=== PATIENT | male | born 2000 | race Two or more races ===

== ENCOUNTER 2025-01-06 01:44 | Emergency (ER) | payer OTHER ==
[~2025-01-06] VITALS: Ht 175.3 cm; Wt 72.1 kg
[2025-01-06] MEDS ORDERED: 0.9 % SODIUM CHLORIDE 1,000 ML IV STA (03:23)
[2025-01-06] MEDS ORDERED: DIPHENHYDRAMINE HCL 50 MG/ML VIAL 1ML IV STA (03:24)
[2025-01-06] MEDS ORDERED: FLUMAZENIL 0.5 MG/5 ML ML IV STA (03:25)
[2025-01-06] MEDS ORDERED: NALOXONE HCL 0.4 MG/ML AMPUL IV STA (03:26)
[2025-01-06] MEDS ORDERED: NALOXONE HCL 0.4 MG/ML AMPUL ONE (03:32)
[2025-01-06] MEDS ORDERED: DIPHENHYDRAMINE HCL 50 MG/ML VIAL 1ML ONE ×2 (03:33→03:40)
[2025-01-06] MEDS ORDERED: FLUMAZENIL 0.5 MG/5 ML ML IV ONE (03:43)
[2025-01-06 03:44] LABS: BASO % 0.4 % (0.1-1.2); HEMATOCRIT 41.6 % (40.1-51.0); LYMPH % 9.6 % (19.3-53.1); MEAN CORPUSCULAR HEMOGLOBIN 31.8 pg (25.6-32.2); MONO # 0.42 (0.24-0.82); MONO % 3.4 % (4.7-12.5); NEUT # 10.82 (1.56-6.13); NEUT % 86.4 % (34.0-71.1); PLATELET COUNT 241 K/uL (163-369); RED BLOOD COUNT 4.71 M/uL (4.63-6.08); RED CELL DISTRIBUTION WIDTH 11.9 % (11.6-14.4)
[2025-01-06 04:23] LABS: ALBUMIN 4.3 gm/dL (3.4-5.0); BILIRUBIN TOTAL 1.98 mg/dL (0.3-1.2); CALCIUM 9.1 mg/dL (8.5-10.1); CREATININE SERUM 1.05 mg/dL (0.70-1.30); GFR 87.53; GLOBULINA 3.6 G/DL (2.4-3.5); POTASSIUM 3.65 mEq/L (3.5-5.1); TOTAL PROTEIN 7.9 gm/dL (6.4-8.2)
[2025-01-06 09:18] LABS: URINE APPEARANCE Clear; URINE BILIRRUBIN Negative (NEGATIVE); URINE BLOOD Negative; URINE COLOR Yellow; URINE GLUCOSE Negative (NEGATIVE); URINE KETONE Trace (NEGATIVE); URINE LEUKOCYTE Small; URINE NITRATE Negative; URINE PROTEIN Trace (NEGATIVE)
[2025-01-06 09:22] LABS: URINE BACTERIA 59.9 uL (0.0-1933); URINE EPITHELIAL CELLS 2.5 uL (0.0-38.8); URINE WBC 8.7 uL (0.0-23.2)
[2025-01-06 09:36] LABS: COCAINE NEGATIVE (NEGATIVE); METHADONE NEGATIVE (NEGATIVE); OPIATES NEGATIVE (NEGATIVE); THC ( Cannabinoids) POSITIVE (NEGATIVE)
[2025-01-06 10:14] LABS: URINE CAST 0.29 uL (0.0-1.40)
== END 2025-01-06 10:11 | disposition home or self-care (01) ==
LOC: ER 02:50
DX: F19.10 Other psychoactive substance abuse, uncomplicated (principal); Z91.048 Other nonmedicinal substance allergy status